=== PATIENT | male | born 1930 | race Caucasian/White ===

== ENCOUNTER 2016-04-18 16:09 | Emergency (ER) | payer MEDICARE, BC ==
[2016-04-18 16:43] LABS: CHLORIDE,CL 99 mmol/L (101-111); SODIUM,NA 136 mmol/L (135-145)
--- NOTE | 2016-04-18 17:20 | EDM.PDOC ---
Scribed by Katherine Rose 04/18/16 2619 for Jason Aldana PA ED HPI Trauma - General Chief Complaint: Trauma Stated Complaint: AMBULANCE Time Seen by Provider: 04/18/16 16:42 Source: Reports: Patient, EMS, RN notes reviewed History Limitations: Reports: No limitations - History of Present Illness INITIAL COMMENTS - FREE TEXT/NARRATIVE: Patient was sitting in his chair at the [facility] and fell out of his chair hitting his head on the dresser. He has an abrasion above the left eye, mid forehead and left upper head laceration. Symptom Onset Date: 04/18/16 Occurred When: just prior to arrival Occurred Where: other ([facility]) Method of Injury: fall Severity: severe Pain/Injury Location: Reports: head Consciousness: Reports: no loss of consciousness Associated Symptoms: Reports: no other symptoms Allergies/ADRs: Allergies atorvastatin calcium [From Lipitor] Allergy (Verified 04/18/16 16:10) unknown ciprofloxacin [From Cipro] Allergy (Verified 04/18/16 16:10) unknown ciprofloxacin HCl [From Cipro] Allergy (Verified 04/18/16 16:10) unknown escitalopram oxalate [From Lexapro] Allergy (Verified 04/18/16 16:10) unknown Penicillins Allergy (Verified 04/18/16 16:10) unknown rosuvastatin calcium [From Crestor] Allergy (Verified 04/18/16 16:10) unknown Home Medications: Ambulatory Orders Ascorbic Acid [Vitamin C] 1,000 mg PO DAILY 03/18/14 [Confirmed 10/25/14] Carvedilol 6.25 mg PO BID 03/18/14 [Confirmed 10/25/14] Colesevelam [Welchol] 1 tab PO BID 03/18/14 [Confirmed 10/25/14] Docusate Sodium [Colace] 100 mg PO DAILY 03/18/14 [Confirmed 10/25/14] Furosemide 1 tab PO DAILY 03/18/14 [Confirmed 10/25/14] Insulin Aspart [NovoLOG] 6 units SUBCUT TID 03/18/14 [Confirmed 10/25/14] Insulin Glarg,Human.Rec.Analog [Lantus Solostar] 20 units SUBCUT BEDTIME [Confirmed 10/25/14] Lisinopril 1 tab PO DAILY 03/18/14 [Confirmed 10/25/14] Omeprazole 1 tab PO DAILY 03/18/14 [Confirmed 10/25/14] PARoxetine [Paxil] 1 tab PO DAILY 03/18/14 [Confirmed 10/25/14] Sennosides/Docusate Sodium [Senna Plus Tablet] 2 each PO DAILY 03/18/14 [ Confirmed 10/25/14] Nystatin 1 each MC BID 10/25/14 [Confirmed 10/25/14] Potassium Chloride 20 meq PO DAILY 10/25/14 [Confirmed 10/25/14] amLODIPine [Norvasc] 5 mg PO DAILY 10/25/14 [Confirmed 10/25/14] Social & Family History - Family History Family Medical History: Noncontributory - Tobacco Use Smoking Status *Q: Never Smoker Second Hand Smoke Exposure: No - Alcohol Use Days Per Week of Alcohol Use: 1 Number of Drinks Per Day: 3 Total Drinks Per Week: 3 - Recreational Drug Use Recreational Drug Use: No - Living Situation & Occupation Living situation: Reports: extended care facility Occupation: retired Review of Systems - Review of Systems Review Of Systems: ROS reveals no pertinent complaints other than HPI. ED EXAM, TRAUMA (MAJOR/MULTI) - Physical Exam Exam: See Below Exam Limited By: No limitations General Appearance: alert, WD/WN, no apparent distress Head: scalp lacerations, scalp abrasions (abrasions as noted above.) Eyes: bilateral eye: EOMI, normal inspection, PERRL Ears: normal external exam, normal canal, hearing grossly normal, normal TMs Nose: normal inspection, normal mucousa, no blood Throat/Mouth: Normal inspection, Normal lips, Normal teeth, Normal gums, Normal oropharynx, Normal voice, No airway compromise Neck: non-tender, full range of motion, normal alignment, normal inspection Cardiovascular: other (pedal edema) Respiratory/Chest: no respiratory distress, lungs clear, normal breath sounds, no accessory muscle use, chest non-tender GI/Abdominal: normal bowel sounds, soft, non tender, no organomegaly, no distention, no abnormal bruit, no mass (Male) Exam: Deferred Rectal (Males) Exam: Deferred Back: full range of motion, normal inspection, non-tender Extremities: other (lower extremities edema.) Neurologic: client relationship consultant II-XII nml as tested, no motor/sensory deficits, alert, normal mood/affect, oriented x 3 Skin: Other (ab) ED TRAUMA PROCEDURES - Laceration/Wound Repair Head Lac/wound length in cm: 4.0 Appearance: subcutaneous Exploration/Debridement/Repair: wound explored, in a bloodless field, explored to base Closed with: ksenia # of sutures: 6 Drain placement: No Sterile dressing applied: nurse Tetanus status addressed: Yes Complications: No Course - Orders/Labs/Meds Orders: Active Orders 24 hr Category Date Time Status EKG Documentation Completion [RC] URGENT Care 04/18/16 16:06 Ordered Labs: Laboratory Tests 04/18/16 04/18/16 04/18/16 Range/Units 16:20 16:20 16:35 WBC 8.9 (5.0-10.0) 10^3/uL RBC 3.98 L (4.6-6.2) 10^6/uL Hgb 11.4 L (14.0-18.0) g/dL Hct 36.2 L (40.0-54.0) % MCV 91.0 (80-100) fL MCH 28.6 (27.0-34.0) pg MCHC 31.5 L (33.0-35.0) g/dL Plt Count 142 L (150-450) 10^3/uL Neut % (Auto) 59.2 (42.2-75.2) % Lymph % (Auto) 24.5 (20.5-50.1) % Delta % (Auto) 13.3 H (2-8) % Eos % (Auto) 2.9 (1.0-3.0) % Baso % (Auto) 0.1 (0.0-1.0) % Sodium 136 (135-145) mmol/L Potassium 4.0 (3.6-5.0) mmol/L Chloride 99 L (101-111) mmol/L Carbon Dioxide 27.0 (21.0-31.0) mmol/L Anion Gap 14.0 BUN 28 H (7-18) mg/dL Creatinine 1.4 H (0.6-1.3) mg/dL Est Cr Clr Drug Dosing TNP Estimated GFR (MDRD) 48 BUN/Creatinine Ratio 20.00 Glucose 122 H (74-105) mg/dL Calcium 9.1 (8.4-10.2) mg/dl Total Bilirubin 0.8 (0.2-1.0) mg/dL AST 26 (10-42) IU/L ALT 21 (10-60) IU/L Alkaline Phosphatase 131 H (42-121) IU/L Troponin I < 0.02 (0.00-0.02) ng/ml Total Protein 7.2 (6.7-8.2) g/dl Albumin 3.4 (3.2-5.5) g/dl Globulin 3.8 Albumin/Globulin Ratio 0.89 Urine Color Yellow (YELLOW) Urine Appearance Clear (CLEAR) Urine pH 5.0 (5.0-9.0) Ur Specific [place] 1.010 (1.005-1.030) Urine Protein Negative (NEGATIVE) Urine Glucose (UA) Negative (NEGATIVE) Urine Ketones Negative (NEGATIVE) Urine Occult Blood Trace-intact H (NEGATIVE) Urine Nitrite Negative (NEGATIVE) Urine Bilirubin Negative (NEGATIVE) Urine Urobilinogen 1.0 (0.2-1.0) mg/dL Ur Leukocyte Esterase Negative (NEGATIVE) Urine RBC 0-5 /HPF Urine WBC 0-5 (0-5/HPF) /HPF Ur Epithelial Cells Rare /HPF Hyaline Casts (0-2) /LPF Urine Mucus Few H /LPF Departure - Departure Time of Disposition: 17:14 Disposition: Home, Self-Care 01 Condition: fair Clinical Impression: Laceration Syncope Qualifiers: Syncope type: vasovagal syncope Qualified Code(s): R55 - Syncope and collapse Scalp abrasion Qualifiers: Encounter type: initial encounter Qualified Code(s): S00.01XA - Abrasion of scalp, initial encounter Instructions: Syncope, [id number], Laceration Care, Adult, Abrasion, Easy-to- Read Forms: ED Department Discharge Care Plan Goals: The patient was advised of the examination, lab and CT results during the visit. The patient should have the ksenia removed in 7-10 days. The patient should be monitored for any additional symptoms or concerns, the patient should follow-up with his primary care facility or return to the emergency department. - My Orders Last 24 Hours: My Active Orders 04/18/16 16:06 EKG Documentation Completion [RC] URGENT - Assessment/Plan Last 24 Hours: My Active Orders 04/18/16 16:06 EKG Documentation Completion [RC] URGENT I have read and agree with the documentation that has been completed regarding this visit. By signing this record, I attest that the documentation was completed in my physical presence and is an accurate record of the encounter.
--- NOTE | 2016-04-22 10:27 | EKG ---
04/18/2016- RONA ESCALONA - EKG done on an 85-year-old male showed a paced rhythm, heart rate of 70 beats per minute, left axis deviation noted and nonspecific interventricular delay. No acute ST wave changes. [facility] /[id number]
== END 2016-04-18 17:30 | disposition home or self-care (01) ==
LOC: DL.ED 16:09
DX: S01.01XA Laceration without foreign body of scalp, initial encounter (principal); R55 Syncope and collapse; Z88.1 Allergy status to other antibiotic agents; Z88.0 Allergy status to penicillin; Z79.4 Long term (current) use of insulin; Z79.899 Other long term (current) drug therapy; W07.XXXA Fall from chair, initial encounter
CPT/HCPCS: 12002; 36415; 70450; 80053; 81001; 84484; 85025; 93005; 93010; 99284; 99285

== ENCOUNTER 2016-09-30 20:12 | Emergency (ER) | payer MEDICARE, BC ==
[2016-09-30 21:29] VITALS: BP 133/63
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
== END 2016-09-30 23:03 ==
LOC: DL.ED 20:12
DX: S20.211A Contusion of right front wall of thorax, initial encounter (principal); S50.01XA Contusion of right elbow, initial encounter; Z88.8 Allergy status to other drugs, medicaments and biological substances; Z88.0 Allergy status to penicillin; Z88.1 Allergy status to other antibiotic agents; Z79.899 Other long term (current) drug therapy; Z79.4 Long term (current) use of insulin; V00.831A Fall from motorized mobility scooter, initial encounter
CPT/HCPCS: 70450; 71101-RT; 99282; 99285

== ENCOUNTER 2017-09-30 08:14 | Inpatient (IN) | payer MEDICARE, BC ==
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
[2017-09-30] MEDS ORDERED: Acetaminophen 325 MG Tab PO PRN (16:38)
[2017-09-30] MEDS ORDERED: Docusate Sodium 100 MG Cap PO PRN (16:38)
[2017-09-30] MEDS ORDERED: Magnesium Hydroxide 400 MG/5 ML Susp 30 ML Cup PO PRN (16:38)
[2017-09-30] MEDS ORDERED: Aluminum Hydroxide/Magnesium Hydroxide/Simethicone Susp 30 ML Cup PO PRN (16:38)
[2017-09-30] MEDS ORDERED: MICONAZOLE TOP PRN (16:46)
[2017-09-30] MEDS ORDERED: Calcium Carbonate 500 MG Tab.Chew PO PRN (16:46)
[2017-09-30] MEDS ORDERED: Polyvinyl Alcohol 1.4% Ophth Soln 15 ML Bottle EYEBOTH PRN (16:46)
[2017-09-30] MEDS ORDERED: HYPROMELLOSE EYEBOTH SCH (17:00)
[2017-09-30] MEDS: Insulin Aspart 100 Units/ML 3 ML Pen **OWN MED SUBCUT SCH (18:32)
[2017-09-30] MEDS: Carvedilol 6.25 MG Tab PO SCH (18:34)
[2017-09-30] MEDS ORDERED: Insulin Detemir 100 Units/ML 3 ML Pen SUBCUT SCH (21:00)
[2017-09-30] MEDS ORDERED: Clotrimazole 1% Crm 30 GM Tube TOP SCH (21:00)
[2017-09-30] MEDS: BASAGLAR 100 UNIT/ML SUBCUT SCH (21:33)
[2017-09-30] MEDS: CALMOSEPTINE TOP SCH (22:43)
[2017-09-30] MEDS: Bacitracin Oint 28.35 GM Tube TOP SCH (22:44)
[2017-09-30] MEDS: PARoxetine 20 MG Tab PO SCH (22:44)
[2017-10-01] MEDS: Isosorbide Mononitrate 30 MG Tab.ER PO SCH (06:21)
[2017-10-01] MEDS: Omeprazole 20 MG Cap.CR PO SCH (06:22)
[2017-10-01] MEDS: Insulin Aspart 100 Units/ML 3 ML Pen **OWN MED SUBCUT SCH ×3 (08:49→17:00)
[2017-10-01] MEDS: Potassium Chloride 10 MEQ Tab.ER PO SCH (08:49)
[2017-10-01] MEDS: Ascorbic Acid 500 MG Tab PO SCH (08:50)
[2017-10-01] MEDS: amLODIPine 5 MG Tab PO SCH (08:50)
[2017-10-01] MEDS: Furosemide 80 MG Tab PO SCH (08:50)
[2017-10-01] MEDS: Multivitamins,Therapeutic Tab PO SCH (08:50)
[2017-10-01] MEDS: Carvedilol 6.25 MG Tab PO SCH ×2 (08:51→17:05)
[2017-10-01] MEDS: Bacitracin Oint 28.35 GM Tube TOP SCH ×2 (08:52→22:05)
[2017-10-01] MEDS: CALMOSEPTINE TOP SCH ×2 (08:52→22:07)
[2017-10-01] MEDS: BASAGLAR 100 UNIT/ML SUBCUT SCH (22:06)
[2017-10-01] MEDS: PARoxetine 20 MG Tab PO SCH (22:07)
[2017-10-02] MEDS: Omeprazole 20 MG Cap.CR PO SCH (06:04)
[2017-10-02] MEDS: Isosorbide Mononitrate 30 MG Tab.ER PO SCH (06:04)
[2017-10-02] MEDS: Insulin Aspart 100 Units/ML 3 ML Pen **OWN MED SUBCUT SCH ×3 (08:19→17:15)
[2017-10-02] MEDS: Carvedilol 6.25 MG Tab PO SCH ×2 (08:40→17:20)
[2017-10-02] MEDS: Furosemide 80 MG Tab PO SCH (08:41)
[2017-10-02] MEDS: Multivitamins,Therapeutic Tab PO SCH (08:41)
[2017-10-02] MEDS: Potassium Chloride 10 MEQ Tab.ER PO SCH (08:41)
[2017-10-02] MEDS: Ascorbic Acid 500 MG Tab PO SCH (08:41)
[2017-10-02] MEDS: amLODIPine 5 MG Tab PO SCH (10:29)
[2017-10-02] MEDS: CALMOSEPTINE TOP SCH ×2 (11:00→21:46)
[2017-10-02] MEDS: Bacitracin Oint 28.35 GM Tube TOP SCH ×2 (11:00→21:44)
[2017-10-02] MEDS: PARoxetine 20 MG Tab PO SCH (21:43)
[2017-10-02] MEDS: BASAGLAR 100 UNIT/ML SUBCUT SCH (21:44)
[2017-10-03] MEDS: Omeprazole 20 MG Cap.CR PO SCH (06:06)
[2017-10-03] MEDS: Isosorbide Mononitrate 30 MG Tab.ER PO SCH (06:06)
[2017-10-03] MEDS: Insulin Aspart 100 Units/ML 3 ML Pen **OWN MED SUBCUT SCH ×3 (08:23→18:14)
[2017-10-03] MEDS: Potassium Chloride 10 MEQ Tab.ER PO SCH (08:24)
[2017-10-03] MEDS: Furosemide 80 MG Tab PO SCH (08:25)
[2017-10-03] MEDS: Ascorbic Acid 500 MG Tab PO SCH (08:25)
[2017-10-03] MEDS: Multivitamins,Therapeutic Tab PO SCH (08:25)
[2017-10-03] MEDS: Carvedilol 6.25 MG Tab PO SCH ×2 (08:26→18:13)
[2017-10-03] MEDS: amLODIPine 5 MG Tab PO SCH (08:27)
[2017-10-03] MEDS: CALMOSEPTINE TOP SCH ×2 (08:31→22:35)
[2017-10-03] MEDS: Bacitracin Oint 28.35 GM Tube TOP SCH ×2 (08:31→22:34)
[2017-10-03] MEDS ORDERED: Insulin Aspart 100 Units/ML 3 ML Pen SUBCUT ONE (17:53)
[2017-10-03] MEDS: BASAGLAR 100 UNIT/ML SUBCUT SCH (22:37)
[2017-10-03] MEDS: PARoxetine 20 MG Tab PO SCH (22:41)
[2017-10-04] MEDS: Isosorbide Mononitrate 30 MG Tab.ER PO SCH (05:37)
[2017-10-04] MEDS: Omeprazole 20 MG Cap.CR PO SCH (05:38)
[2017-10-04] MEDS: Carvedilol 6.25 MG Tab PO SCH ×2 (07:57→17:07)
[2017-10-04] MEDS: Potassium Chloride 10 MEQ Tab.ER PO SCH (07:58)
[2017-10-04] MEDS: Bacitracin Oint 28.35 GM Tube TOP SCH ×2 (08:00→21:29)
[2017-10-04] MEDS: CALMOSEPTINE TOP SCH ×2 (08:01→21:30)
[2017-10-04] MEDS: Ascorbic Acid 500 MG Tab PO SCH (08:02)
[2017-10-04] MEDS: Furosemide 80 MG Tab PO SCH (08:02)
[2017-10-04] MEDS: Multivitamins,Therapeutic Tab PO SCH (08:02)
[2017-10-04] MEDS: Insulin Aspart 100 Units/ML 3 ML Pen **OWN MED SUBCUT SCH ×3 (08:12→17:07)
[2017-10-04] MEDS: amLODIPine 5 MG Tab PO SCH (08:14)
[2017-10-04] MEDS: PARoxetine 20 MG Tab PO SCH (21:28)
[2017-10-04] MEDS: BASAGLAR 100 UNIT/ML SUBCUT SCH (21:44)
[2017-10-05] MEDS: Omeprazole 20 MG Cap.CR PO SCH (05:44)
[2017-10-05] MEDS: Isosorbide Mononitrate 30 MG Tab.ER PO SCH (06:20)
[2017-10-05] MEDS: Insulin Aspart 100 Units/ML 3 ML Pen **OWN MED SUBCUT SCH ×3 (08:49→17:28)
[2017-10-05] MEDS: Potassium Chloride 10 MEQ Tab.ER PO SCH (08:49)
[2017-10-05] MEDS: Multivitamins,Therapeutic Tab PO SCH (08:50)
[2017-10-05] MEDS: Furosemide 80 MG Tab PO SCH (08:50)
[2017-10-05] MEDS: Ascorbic Acid 500 MG Tab PO SCH (08:50)
[2017-10-05] MEDS: CALMOSEPTINE TOP SCH ×2 (08:51→20:49)
[2017-10-05] MEDS: Bacitracin Oint 28.35 GM Tube TOP SCH ×2 (08:53→20:49)
[2017-10-05] MEDS: Carvedilol 6.25 MG Tab PO SCH ×2 (08:54→17:29)
[2017-10-05] MEDS: amLODIPine 5 MG Tab PO SCH (08:54)
[2017-10-05] MEDS: PARoxetine 20 MG Tab PO SCH (20:49)
[2017-10-05] MEDS: BASAGLAR 100 UNIT/ML SUBCUT SCH (21:42)
[2017-10-06] MEDS: Omeprazole 20 MG Cap.CR PO SCH (06:35)
[2017-10-06] MEDS: Isosorbide Mononitrate 30 MG Tab.ER PO SCH (06:38)
[2017-10-06] MEDS: Multivitamins,Therapeutic Tab PO SCH (08:47)
[2017-10-06] MEDS: Furosemide 80 MG Tab PO SCH (08:49)
[2017-10-06] MEDS: Ascorbic Acid 500 MG Tab PO SCH (08:49)
[2017-10-06] MEDS: Potassium Chloride 10 MEQ Tab.ER PO SCH (08:49)
[2017-10-06] MEDS: Insulin Aspart 100 Units/ML 3 ML Pen **OWN MED SUBCUT SCH ×3 (08:50→18:02)
[2017-10-06] MEDS: Bacitracin Oint 28.35 GM Tube TOP SCH ×2 (08:51→22:02)
[2017-10-06] MEDS: CALMOSEPTINE TOP SCH ×2 (08:52→22:05)
[2017-10-06] MEDS: Carvedilol 6.25 MG Tab PO SCH ×2 (10:14→18:06)
[2017-10-06] MEDS: amLODIPine 5 MG Tab PO SCH (10:14)
[2017-10-06] MEDS: PARoxetine 20 MG Tab PO SCH (22:02)
[2017-10-06] MEDS: BASAGLAR 100 UNIT/ML SUBCUT SCH (22:27)
[2017-10-07] MEDS: Omeprazole 20 MG Cap.CR PO SCH (05:57)
[2017-10-07] MEDS: Isosorbide Mononitrate 30 MG Tab.ER PO SCH (05:57)
[2017-10-07] MEDS: Ascorbic Acid 500 MG Tab PO SCH (08:10)
[2017-10-07] MEDS: Potassium Chloride 10 MEQ Tab.ER PO SCH (08:10)
[2017-10-07] MEDS: Multivitamins,Therapeutic Tab PO SCH (08:10)
[2017-10-07] MEDS: CALMOSEPTINE TOP SCH ×2 (08:11→23:01)
[2017-10-07] MEDS: Furosemide 80 MG Tab PO SCH (08:11)
[2017-10-07] MEDS: Bacitracin Oint 28.35 GM Tube TOP SCH ×2 (08:12→22:55)
[2017-10-07] MEDS: Insulin Aspart 100 Units/ML 3 ML Pen **OWN MED SUBCUT SCH ×3 (08:12→17:10)
[2017-10-07] MEDS: amLODIPine 5 MG Tab PO SCH (08:14)
[2017-10-07] MEDS: Carvedilol 6.25 MG Tab PO SCH ×2 (08:14→17:11)
[2017-10-07] MEDS ORDERED: Metolazone 2.5 MG Tab PO SCH (09:00)
[2017-10-07] MEDS: TRIAD TOP SCH ×2 (10:27→22:54)
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
[2017-10-07] MEDS: PARoxetine 20 MG Tab PO SCH (22:56)
[2017-10-07] MEDS: Insulin Detemir 100 Units/ML 3 ML Pen SUBCUT SCH (22:57)
[2017-10-08] MEDS: BASAGLAR 100 UNIT/ML SUBCUT SCH (03:45)
[2017-10-08] MEDS: Omeprazole 20 MG Cap.CR PO SCH (06:04)
[2017-10-08] MEDS: Isosorbide Mononitrate 30 MG Tab.ER PO SCH (06:04)
[2017-10-08] MEDS: Multivitamins,Therapeutic Tab PO SCH (09:36)
[2017-10-08] MEDS: Potassium Chloride 10 MEQ Tab.ER PO SCH (09:36)
[2017-10-08] MEDS: Bacitracin Oint 28.35 GM Tube TOP SCH ×2 (09:37→20:50)
[2017-10-08] MEDS: Furosemide 80 MG Tab PO SCH (09:37)
[2017-10-08] MEDS: TRIAD TOP SCH ×2 (09:37→20:53)
[2017-10-08] MEDS: Ascorbic Acid 500 MG Tab PO SCH (09:37)
[2017-10-08] MEDS: Insulin Aspart 100 Units/ML 3 ML Pen **OWN MED SUBCUT SCH ×3 (09:38→17:23)
[2017-10-08] MEDS: amLODIPine 5 MG Tab PO SCH (09:39)
[2017-10-08] MEDS: Carvedilol 6.25 MG Tab PO SCH ×2 (09:39→17:22)
[2017-10-08] MEDS: CALMOSEPTINE TOP SCH ×2 (09:39→20:52)
[2017-10-08] MEDS: PARoxetine 20 MG Tab PO SCH (20:51)
[2017-10-08] MEDS: Insulin Detemir 100 Units/ML 3 ML Pen SUBCUT SCH (20:51)
[2017-10-08] MEDS ORDERED: Insulin Detemir 100 Units/ML 3 ML Pen SUBCUT SCH (21:58)
[2017-10-09] MEDS: Omeprazole 20 MG Cap.CR PO SCH (05:20)
[2017-10-09] MEDS: Isosorbide Mononitrate 30 MG Tab.ER PO SCH (05:20)
[2017-10-09] MEDS: Insulin Aspart 100 Units/ML 3 ML Pen **OWN MED SUBCUT SCH ×2 (08:11→12:05)
[2017-10-09] MEDS: Ascorbic Acid 500 MG Tab PO SCH (08:51)
[2017-10-09] MEDS: Multivitamins,Therapeutic Tab PO SCH (08:51)
[2017-10-09] MEDS: Furosemide 80 MG Tab PO SCH (08:52)
[2017-10-09] MEDS: Carvedilol 6.25 MG Tab PO SCH (08:52)
[2017-10-09] MEDS: Potassium Chloride 10 MEQ Tab.ER PO SCH (08:52)
[2017-10-09] MEDS: amLODIPine 5 MG Tab PO SCH (08:52)
[2017-10-09] MEDS: Bacitracin Oint 28.35 GM Tube TOP SCH (08:53)
[2017-10-09] MEDS: TRIAD TOP SCH (08:53)
[2017-10-09] MEDS: CALMOSEPTINE TOP SCH (08:53)
[2017-10-09 08:54] VITALS: BP 101/54
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
== END 2017-10-09 14:00 | disposition home or self-care (01) | DRG 950 ==
LOC: DL.MS 15:54 → UNDOADMIN 15:54 → DL.MS 16:38
PROVIDERS: ADMIT Student in an Organized Health Care Education/Training Program; ATTEND Student in an Organized Health Care Education/Training Program
DX: S06.5X9D Traumatic subdural hemorrhage with loss of consciousness of unspecified duration, subsequent encounter (principal); E11.9 Type 2 diabetes mellitus without complications; S37.012D Minor contusion of left kidney, subsequent encounter; I48.91 Unspecified atrial fibrillation; W05.1XXD Fall from non-moving nonmotorized scooter, subsequent encounter; I25.10 Atherosclerotic heart disease of native coronary artery without angina pectoris; I11.0 Hypertensive heart disease with heart failure; I50.9 Heart failure, unspecified; G47.30 Sleep apnea, unspecified; K21.9 Gastro-esophageal reflux disease without esophagitis; N32.81 Overactive bladder; E87.6 Hypokalemia; E78.5 Hyperlipidemia, unspecified; F03.90 Unspecified dementia, unspecified severity, without behavioral disturbance, psychotic disturbance, mood disturbance, and anxiety; R60.9 Edema, unspecified; N28.9 Disorder of kidney and ureter, unspecified; H91.90 Unspecified hearing loss, unspecified ear; F32.9 Major depressive disorder, single episode, unspecified; M19.90 Unspecified osteoarthritis, unspecified site; Z88.8 Allergy status to other drugs, medicaments and biological substances; Z79.899 Other long term (current) drug therapy; Z79.4 Long term (current) use of insulin; Z95.0 Presence of cardiac pacemaker
CPT/HCPCS: 82962; 97110-GO; 97110-GP; 97116-GP; 97162-GP; 97165-GO; 97530-GO; 97535-GO; A9270-GY; J1815-GY

== ENCOUNTER 2017-11-13 12:59 | Inpatient (IN) | payer MEDICARE, BC ==
[2017-11-13] MEDS ORDERED: Morphine 10 MG/0.5 ML Oral Syringe SL PRN (13:54)
[2017-11-13] MEDS ORDERED: Acetaminophen 650 MG Supp RECTAL PRN (13:54)
[2017-11-13] MEDS ORDERED: LORazepam 2 MG/ML Syringe IVPUSH PRN (13:54)
[2017-11-13] MEDS ORDERED: Glycopyrrolate 0.2 MG/ML 2 ML SDV SUBCUT PRN (13:54)
[2017-11-13] MEDS ORDERED: Sodium Chloride 0.9% 10 ML Syringe FLUSH PRN (13:57)
--- NOTE | 2017-11-13 14:13 | PCM.HP ---
H&P History of Present Illness - General Date of Service: 11/13/17 Admit Problem/Dx: Admission Diagnosis/Problem Admission Diagnosis/Problem Encephalopathy Source of Information: Family, Other (Altru chart) - History of Present Illness Initial Comments - Free Text/Narative: 87 yo M who has h/o dm, htn h/o fall and development of Left Subdural hematoma with associated midline shift- status post removal of left subdural drain with continued altered mental status. Alt hospital course was complicated with seizure. Upon further consideration, the family has decided for comfort care. He was transferd here by ambulance for comfort care, end of life. - Related Data Allergies/Adverse Reactions: Allergies Allergy/AdvReac Type Severity Reaction Status Date / Time atorvastatin calcium Allergy unknown Verified 11/13/17 10:36 [From Lipitor] ciprofloxacin [From Cipro] Allergy unknown Verified 11/13/17 10:36 ciprofloxacin HCl Allergy unknown Verified 11/13/17 10:36 [From Cipro] escitalopram oxalate Allergy unknown Verified 11/13/17 10:36 [From Lexapro] oxycodone Allergy Cannot Verified 11/13/17 10:36 Remember Penicillins Allergy unknown Verified 11/13/17 10:36 rosuvastatin calcium Allergy unknown Verified 11/13/17 10:36 [From Crestor] Home Medications: Home Meds Acetaminophen 650 mg RC Q4HR PRN 11/13/17 [History] Atropine 1% [Atropine 1% Ophth Soln] 10 drop SL QID PRN 11/13/17 [History] Fosphenytoin Sodium [Cerebyx] 500 mg IV DAILY 11/13/17 [History] Glycopyrrolate [Robinul] 0.4 mg SUBCUT Q4HR PRN 11/13/17 [History] LORazepam [Lorazepam] 2 mg IV Q4HR PRN 11/13/17 [History] Levetiracetam in NaCl (Iso-Os) [Levetiracetam-NaCl 1,000Mg/100] 1,000 mg IV Q12HR 11/13/17 [History] Morphine [Morphine 20 MG/ML Soln] 10 mg SL Q1H PRN 11/13/17 [History] Ondansetron [Zofran] 4 mg IV Q8HR PRN 11/13/17 [History] Scopolamine [Transderm-Scop] 1 each TD ASDIRECTED PRN 11/13/17 [History] Past Medical History HEENT History: Reports: Hard of Hearing Cardiovascular History: Reports: Afib, CAD, Heart Failure, High Cholesterol, Hypertension, Pacemaker Respiratory History: Reports: Sleep Apnea Gastrointestinal History: Reports: GERD, PUD Genitourinary History: Reports: Other (See Below) Other Genitourinary History: overactive bladder Musculoskeletal History: Reports: Other (See Below) Other Musculoskeletal History: DJD Neurological History: Reports: Cerebral Aneurysms Psychiatric History: Reports: Depression Endocrine/Metabolic History: Reports: Diabetes, Type II Dermatologic History: Reports: Other (See Below) Other Dermatologic History: Pressure ulcer to bilateral buttocks that comes and goes, necrotizing fasciitis on left buttock(resolved) - Infectious Disease History Infectious Disease History: Reports: Chicken Pox - Past Surgical History GI Surgical History: Reports: Other (See Below) Other GI Surgeries/Procedures: ileostomy Social & Family History - Family History Family Medical History: Noncontributory - Tobacco Use Smoking Status *Q: Former Smoker Years of Tobacco use: 20 Used Tobacco, but Quit: Yes Month/Year Tobacco Last Used: february - Caffeine Use Caffeine Use: Reports: None - Recreational Drug Use Recreational Drug Use: No - Living Situation & Occupation Living situation: Reports: Extended Care Facility Occupation: Retired H&P Review of Systems - Review of Systems: Review Of Systems: See Below General: Denies: Fever Pulmonary: Reports: Other (rattling breathing) Psychiatric: Reports: Other (lethargy) Exam - Exam Exam: See Below - Vital Signs Vital Signs: Last Vital Signs Temp 36.1 C 11/13/17 13:37 Pulse 80 11/13/17 13:37 Resp 24 H 11/13/17 13:37 BP 131/54 L 11/13/17 13:37 Pulse Ox 88 L 11/13/17 13:37 Weight: 110.586 kg - Exam General: Lethargic, Obtunded. No: Alert Neck: Other (upper airway secretions, no wheeze) Lungs: Clear to Auscultation. No: Wheezing Cardiovascular: Regular Rate, Regular Rhythm - Problem List (1) Altered mental status SNOMED Code(s): 882088742 ICD Code: R41.82 - ALTERED MENTAL STATUS, UNSPECIFIED Status: Acute Current Visit: No (2) SDH (subdural hematoma) SNOMED Code(s): 71963388 ICD Code: S06.5X9A - TRAUM SUBDR HEM W LOC OF UNSP DURATION, INIT Status: Acute Priority: Medium Current Visit: No Problem List Initiated/Reviewed/Updated: Yes Orders Last 24hrs: Active Orders 24 hr Category Date Time Status Patient Status [ADT] Routine ADT 11/13/17 13:58 Ordered Up ad Adeola [RC] ASDIRECTED Care 11/13/17 13:57 Ordered Vital Signs [RC] Q4H Care 11/13/17 13:58 Ordered Nothing per Oral Now Diet [DIET] Diet 11/13/17 Dinner Ordered Acetaminophen [Tylenol] Med 11/13/17 13:54 Ordered 650 mg RECTAL Q4HR PRN Atropine 1% [Atropine 1% Ophth Soln] Med 11/13/17 13:54 Ordered 10 drop SL QID PRN Fosphenytoin Sodium [Cerebyx] Med 11/14/17 09:00 Ordered 500 mg IV DAILY Glycopyrrolate Med 11/13/17 13:54 Ordered 0.4 mg SUBCUT Q4HR PRN LORazepam [Ativan] Med 11/13/17 13:54 Ordered 2 mg IVPUSH Q4HR PRN Levetiracetam in NaCl (Iso-Os) [Levetiracetam-NaCl 1, Med 11/13/17 21:00 Ordered 000Mg/100] 1,000 mg IV Q12HR Morphine Med 11/13/17 13:54 Ordered 10 mg SL Q1H PRN Scopolamine [Transderm-Scop] Med 11/13/17 14:00 Ordered 1 each TRDERM Q72H Sodium Chloride 0.9% [Saline Flush] Med 11/13/17 13:57 Ordered 10 ml FLUSH ASDIRECTED PRN Saline Lock Insert [OM.PC] Routine Oth 11/13/17 13:57 Ordered Resuscitation Status Routine Resus Stat 11/13/17 13:57 Ordered Medication Orders Acetaminophen (Tylenol) 650 mg RECTAL Q4HR PRN PRN Reason: Pain/Fever Atropine Sulfate (Atropine 1% Ophth Soln) ml SL QID PRN PRN Reason: secretions Glycopyrrolate (Glycopyrrolate) 0.4 mg SUBCUT Q4HR PRN PRN Reason: secretions Lorazepam (Ativan) 2 mg IVPUSH Q4HR PRN PRN Reason: Agitation Non-Formulary Medication (Fosphenytoin Sodium [Cerebyx]) 500 mg IV DAILY JAYLA Non-Formulary Medication (Levetiracetam In Nacl (Iso-Os) [Levetiracetam-Nacl 1, 000mg/100]) 1,000 mg IV Q12HR JAYLA Non-Formulary Medication (Morphine) 10 mg SL Q1H PRN PRN Reason: Pain Scopolamine (Transderm-Scop) mg TRDERM Q72H JAYLA Sodium Chloride (Saline Flush) 10 ml FLUSH ASDIRECTED PRN PRN Reason: Keep Vein Open Assessment/Plan Comment:: 87 yo M who has h/o dm, htn h/o fall and development of Left Subdural hematoma with associated midline shift- status post removal of left subdural drain with continued altered mental status. [facility] hospital course was complicated with seizure. Upon further consideration, the family has decided for comfort care. He was transferd here by ambulance for comfort care, end of life. will admit for comfort care use morphine sl and IV for pain and discomfort use glycopyrrolate, atropine, scopolamine for secretions use keppra, dilantin for seizure prophylaxis has [facility]- called [facility] - they will come to turn it off air mattress for decubitus ulcers
[2017-11-13] MEDS: Atropine 1% Ophth Soln 5 ML BOTTLE SL PRN ×2 (15:27→21:32)
[2017-11-13] MEDS ORDERED: Morphine 2 MG/ML Syringe IVPUSH PRN (19:27)
[2017-11-13] MEDS ORDERED: Check Patch TRDERM SCH (21:00)
[2017-11-13] MEDS ORDERED: levETIRAcetam 1,000 MG in Sodium Chloride 0.9% 100 ML IV SCH (21:00)
[2017-11-13] MEDS ORDERED: LEVETIRACETAM IN NACL IV SCH (21:00)
[2017-11-13] MEDS ORDERED: [UNRECOGNIZED DRUG - OTHER] IV SCH (21:00)
[2017-11-13 23:36] VITALS: BP 142/65
[2017-11-14] MEDS ORDERED: FOSPHENYTOIN SODIUM IV SCH (09:00)
--- NOTE | 2017-11-14 10:41 | PCM.DCSUM1 ---
Discharge Summary - Hospital Course Free Text/Narrative:: The patient is an 87-year-old gentleman who had a fall. Developed subdural hematoma. The patient was hospitalized and discharged to swing bed but then been his neurological status was worsening and was rehospitalized in the acute care facility in [place]. The patient did not improve and the decision was to change CODE STATUS to comfort care only. The patient was transferred to [facility] for [facility] for care. Pain was controlled with the morphine. Secretions were controlled. Comfort Care was provided In the building and construction manager of 14 November the patient peacefully . Diagnosis: Stroke: No - Discharge Data Discharge Date: 11/14/17 Discharge Disposition: Condition: - Discharge Diagnosis/Problem(s) (1) Altered mental status SNOMED Code(s): 490425270 ICD Code: R41.82 - ALTERED MENTAL STATUS, UNSPECIFIED Status: Acute (2) SDH (subdural hematoma) SNOMED Code(s): 55624932 ICD Code: S06.5X9A - TRAUM SUBDR HEM W LOC OF UNSP DURATION, INIT Status: Acute Priority: Medium - Discharge Plan Home Medications: Home Meds Acetaminophen 650 mg RC Q4HR PRN 11/13/17 [History] Atropine 1% [Atropine 1% Ophth Soln] 10 drop SL QID PRN 11/13/17 [History] Fosphenytoin Sodium [Cerebyx] 500 mg IV DAILY 11/13/17 [History] Glycopyrrolate [Robinul] 0.4 mg SUBCUT Q4HR PRN 11/13/17 [History] LORazepam [Lorazepam] 2 mg IV Q4HR PRN 11/13/17 [History] Levetiracetam in NaCl (Iso-Os) [Levetiracetam-NaCl 1,000Mg/100] 1,000 mg IV Q12HR 11/13/17 [History] Morphine [Morphine 20 MG/ML Soln] 10 mg SL Q1H PRN 11/13/17 [History] Ondansetron [Zofran] 4 mg IV Q8HR PRN 11/13/17 [History] Scopolamine [Transderm-Scop] 1 each TD ASDIRECTED PRN 11/13/17 [History] - Discharge Summary/Plan Comment DC Time >30 min.: No - General Info Date of Service: 11/14/17 - Review of Systems General: Reports: Other (Past of a) Pulmonary: Reports: Other (Normal respiratory movements per nursing staff) Cardiovascular: Reports: Other (No heart sounds per nursing staff) - Patient Data Vitals - Most Recent: Last Vital Signs Temp 37.0 C 11/13/17 20:00 Pulse 106 H 11/13/17 20:00 Resp 28 H 11/13/17 20:00 BP 142/65 H 11/13/17 20:00 Pulse Ox 82 L 11/13/17 20:00 Weight - Most Recent: 110.586 kg I&O - Last 24 hours: Intake & Output 11/13/17 11/14/17 11/14/17 22:59 06:59 14:59 Output Total 400 125 Balance -400 -125 Med Orders - Current: Current Medications Discontinued Medications Acetaminophen (Tylenol) 650 mg RECTAL Q4HR PRN PRN Reason: Pain/Fever Atropine Sulfate (Atropine 1% Ophth Soln) 0 ml SL QID PRN PRN Reason: secretions Last Admin: 11/13/17 21:32 Dose: 5 ml Glycopyrrolate (Glycopyrrolate) 0.4 mg SUBCUT Q4HR PRN PRN Reason: secretions Last Admin: 11/13/17 22:03 Dose: 0.4 mg Fosphenytoin Sodium 500 mg.pe/ (Sodium Chloride) 110 mls @ 660 mls/hr IV Q24H JAYLA Levetiracetam 1,000 mg/ Sodium (Chloride) 110 mls @ 440 mls/hr IV BID JAYLA Last Admin: 11/13/17 20:56 Dose: 440 mls/hr Lorazepam (Ativan) 2 mg IVPUSH Q4HR PRN PRN Reason: Agitation Miscellaneous Information (Check Patch) 1 ea TRDERM BID JAYLA Last Admin: 11/13/17 21:01 Dose: Not Given Morphine Sulfate (Morphine 10 Mg/0.5 Ml Oral Syringe) 10 mg SL Q1H PRN PRN Reason: Pain Last Admin: 11/13/17 16:45 Dose: 10 mg Morphine Sulfate (Morphine) 1 mg IVPUSH Q1H PRN PRN Reason: severe pain Non-Formulary Medication (Fosphenytoin Sodium [Cerebyx]) [address] [facility] Non-Formulary Medication (Levetiracetam In Nacl (Iso-Os) [Levetiracetam-Nacl 1, 000mg/100]) 1,000 mg IV Q12HR JAYLA Scopolamine (Transderm-Scop) 1.5 mg TRDERM Q72H JAYLA Sodium Chloride (Saline Flush) 10 ml FLUSH ASDIRECTED PRN PRN Reason: Keep Vein Open
[2017-11-15] MEDS ORDERED: Scopolamine 1.5 MG Transdermal Patch TRDERM SCH (09:00)
== END 2017-11-14 03:40 | disposition expired | DRG 951 ==
LOC: UNDOADMIN 12:59 → DL.MS 12:59
PROVIDERS: ADMIT Internal Medicine; ATTEND Internal Medicine
DX: Z51.5 Encounter for palliative care (principal); S06.5X9D Traumatic subdural hemorrhage with loss of consciousness of unspecified duration, subsequent encounter; W19.XXXD Unspecified fall, subsequent encounter; E11.9 Type 2 diabetes mellitus without complications; R56.9 Unspecified convulsions; W19.XXXA Unspecified fall, initial encounter; I48.91 Unspecified atrial fibrillation; Z66 Do not resuscitate; I25.10 Atherosclerotic heart disease of native coronary artery without angina pectoris; I11.0 Hypertensive heart disease with heart failure; I50.9 Heart failure, unspecified; H91.90 Unspecified hearing loss, unspecified ear; K21.9 Gastro-esophageal reflux disease without esophagitis; K27.9 Peptic ulcer, site unspecified, unspecified as acute or chronic, without hemorrhage or perforation; N32.81 Overactive bladder; L89.329 Pressure ulcer of left buttock, unspecified stage; L89.319 Pressure ulcer of right buttock, unspecified stage; M19.90 Unspecified osteoarthritis, unspecified site; F32.9 Major depressive disorder, single episode, unspecified; Z95.810 Presence of automatic (implantable) cardiac defibrillator; Z79.899 Other long term (current) drug therapy; Z87.891 Personal history of nicotine dependence; Z86.79 Personal history of other diseases of the circulatory system; Z88.1 Allergy status to other antibiotic agents; Z88.0 Allergy status to penicillin; Z88.8 Allergy status to other drugs, medicaments and biological substances
CPT/HCPCS: A9270-GY; J1953; J3490; J7050